=== PATIENT | female | born 1950 | race Two or more races ===

== ENCOUNTER 2021-04-13 14:32 | Inpatient (IN) | payer OTHER ==
[~2021-04-13] VITALS: Ht 165.1 cm; Wt 53.1 kg
[2021-04-13] MEDS ORDERED: SODIUM CHLORIDE 0.9% 1,000 ML IV ONE (15:15)
[2021-04-13] MEDS ORDERED: InsuLIN REG 1unit/0.01ml Soln (100units/ml) IV ONE (15:15)
[2021-04-13 16:32] LABS: Basophils # (auto) 0.1 10 ^3/uL (0-0.2); Basophils % (auto) 0.7 % (0.0-2.0); Eosinophils # (auto) 0 10 ^3/uL (0-0.8); Eosinophils % (auto) 0.1 % (0.0-7.0); Hematocrit 42.2 % (36.0-46.0); Hemoglobin 14.5 g/dL (12.2-16.2); Lymphocytes # (auto) 1.2 10 ^3/uL (0.4-5.4); Lymphocytes % (auto) 9.8 % (10.0-50.0); Mean Corpuscular Hemoglobin 31.1 pg (28.0-32.0); Mean Corpuscular Hgb Conc. 34.4 g/dL (32.0-36.0); Mean Corpuscular Volume 90.6 fL (80.0-100.0); Monocytes # (auto) 0.5 10 ^3/uL (0-1.3); Monocytes % (auto) 4.5 % (0.0-12.0); Neutrophils # (auto) 10.4 10 ^3/uL (1.6-8.6); Neutrophils % (auto) 84.9 % (37.0-80.0); Red Blood Cells 4.66 10^6/uL (4.0-5.20); Red Cell Distribution Width 12.9 % (11.8-14.3); White Blood Cell 12.2 10^3/uL (4.4-10.8)
[2021-04-13 16:46] LABS: Albumin 3.6 g/dL (3.4-5.0); Calcium 8.6 mg/dL (8.5-10.1); Magnesium 2.2 mg/dL (1.6-2.6); Potassium 3.2 mmol/L (3.5-5.1)
[2021-04-13 16:48] LABS: BUN/Creatinine Ratio 12.7
[2021-04-13 16:50] LABS: Bilirubin, Total 0.7 mg/dL (0.2-1.0); Total Protein 7.4 g/dL (6.4-8.2)
[2021-04-13] MEDS ORDERED: DOCUSATE CALCIUM 240 MG CAP PO PRN (19:00)
[2021-04-13] MEDS ORDERED: NITROGLYCERIN 0.4 MG SL TAB SL PRN (19:00)
[2021-04-13] MEDS ORDERED: ONDANSETRON HCL 4 MG/2 ML VIAL IV PRN (19:00)
[2021-04-13] MEDS ORDERED: MORPHINE SULF INJ 2 MG/ML SYRINGE 1ML IV PRN ×2 (19:00)
[2021-04-13] MEDS ORDERED: ACETAMINOPHEN 325 MG TAB PO PRN (19:00)
[2021-04-13] MEDS ORDERED: LORazepam 0.5 MG TAB PO PRN (19:00)
[2021-04-13] MEDS ORDERED: DEXTROSE (50%) 50ML SYRG IV PRN (19:00)
[2021-04-13] MEDS ORDERED: SODIUM CHLORIDE 0.9% 500 ML IV ONE (19:00)
[2021-04-13] MEDS: ACCU-CHEK COMFORT CURVE STRIP VI SCH ×2 (21:04→23:25)
[2021-04-13] MEDS ORDERED: INSULIN LANTUS (GLARGINE) 1 /0.01ml (100units/ml) SC ONE (21:28)
[2021-04-13] MEDS ORDERED: InsuLIN REG 1unit/0.01ml Soln (100units/ml) ONE (21:29)
[2021-04-13] MEDS: InsuLIN REG 1unit/0.01ml Soln (100units/ml) SC SCH ×2 (21:31→23:29)
[2021-04-13 21:37] VITALS: BP 131/84
[2021-04-13 22:00] VITALS: BP 131/84
[2021-04-13] MEDS ORDERED: INSULIN LANTUS (GLARGINE) 1 /0.01ml (100units/ml) SC SCH (22:00)
[2021-04-13 22:11] LABS: Urine Bacteria NONE SEEN /hpf (None Seen); Urine Blood Negative /uL (Negative); Urine Specific Gravity 1.013 (1.001-1.035); Urine WBC 2 /hpf (0 - 5)
[2021-04-13] MEDS ORDERED: POTASSIUM CHL 20 Meq TABLET PO ONE (22:30)
[2021-04-13] MEDS: SODIUM CHLORIDE 0.9% 1,000 ML IV SCH (22:30)
[2021-04-14] MEDS: InsuLIN REG 1unit/0.01ml Soln (100units/ml) SC SCH ×6 (03:29→23:25)
[2021-04-14] MEDS: ACCU-CHEK COMFORT CURVE STRIP VI SCH ×6 (03:29→23:22)
[2021-04-14 05:00] VITALS: BP 112/69
[2021-04-14 08:07] LABS: Basophils # (auto) 0 10 ^3/uL (0-0.2); Basophils % (auto) 0.5 % (0.0-2.0); Eosinophils # (auto) 0.1 10 ^3/uL (0-0.8); Eosinophils % (auto) 0.8 % (0.0-7.0); Hematocrit 41.5 % (36.0-46.0); Hemoglobin 14.3 g/dL (12.2-16.2); Lymphocytes # (auto) 2.4 10 ^3/uL (0.4-5.4); Mean Corpuscular Hemoglobin 31.7 pg (28.0-32.0); Mean Corpuscular Hgb Conc. 34.5 g/dL (32.0-36.0); Mean Corpuscular Volume 91.6 fL (80.0-100.0); Monocytes # (auto) 0.6 10 ^3/uL (0-1.3); Monocytes % (auto) 6.3 % (0.0-12.0); Neutrophils # (auto) 5.7 10 ^3/uL (1.6-8.6); Neutrophils % (auto) 65.4 % (37.0-80.0); Red Blood Cells 4.52 10^6/uL (4.0-5.20); Red Cell Distribution Width 13.2 % (11.8-14.3); White Blood Cell 8.7 10^3/uL (4.4-10.8)
[2021-04-14 08:12] LABS: INR 1.02 (0.9-1.15)
[2021-04-14 08:14] LABS: Potassium 3.2 mmol/L (3.5-5.1)
[2021-04-14 08:21] LABS: Albumin 3.3 g/dL (3.4-5.0); BUN/Creatinine Ratio 15.6; Bilirubin, Total 0.6 mg/dL (0.2-1.0); Calcium 8.4 mg/dL (8.5-10.1); Total Protein 7.2 g/dL (6.4-8.2)
[2021-04-14 09:00] VITALS: BP 147/70
[2021-04-14] MEDS: PANTOPRAZOLE 40 MG TAB PO SCH (09:01)
[2021-04-14] MEDS: ENOXAPARIN SOD 40 MG/0.4 ML SYRINGE SC SCH (09:01)
[2021-04-14] MEDS: SODIUM CHLORIDE 0.9% 1,000 ML IV SCH ×2 (11:40→23:26)
[2021-04-14 13:00] VITALS: BP 147/79
[2021-04-14 17:00] VITALS: BP 163/82
[2021-04-14] MEDS: LABETALOL HCL 5 MG/ML 4ML SYRINGE IV PRN (17:14)
[2021-04-14] MEDS: metFORMIN HYDROCHLORIDE 500 MG TAB PO SCH (17:14)
[2021-04-14 22:00] VITALS: BP 116/69
[2021-04-15] MEDS: ACCU-CHEK COMFORT CURVE STRIP VI SCH ×5 (04:01→20:40)
[2021-04-15] MEDS: InsuLIN REG 1unit/0.01ml Soln (100units/ml) SC SCH ×5 (04:04→20:45)
[2021-04-15 05:00] VITALS: BP 148/84
[2021-04-15 05:49] LABS: Basophils # (auto) 0.1 10 ^3/uL (0-0.2); Basophils % (auto) 0.8 % (0.0-2.0); Eosinophils # (auto) 0.1 10 ^3/uL (0-0.8); Eosinophils % (auto) 1.7 % (0.0-7.0); Hematocrit 42.7 % (36.0-46.0); Hemoglobin 14.8 g/dL (12.2-16.2); Lymphocytes # (auto) 2.1 10 ^3/uL (0.4-5.4); Lymphocytes % (auto) 27.6 % (10.0-50.0); Mean Corpuscular Hemoglobin 31.6 pg (28.0-32.0); Mean Corpuscular Hgb Conc. 34.7 g/dL (32.0-36.0); Mean Corpuscular Volume 91.1 fL (80.0-100.0); Monocytes # (auto) 0.4 10 ^3/uL (0-1.3); Monocytes % (auto) 5.6 % (0.0-12.0); Neutrophils # (auto) 4.8 10 ^3/uL (1.6-8.6); Neutrophils % (auto) 64.3 % (37.0-80.0); Nucleated Red Blood Cells % 0.1 %; Red Blood Cells 4.69 10^6/uL (4.0-5.20); Red Cell Distribution Width 13.3 % (11.8-14.3); White Blood Cell 7.5 10^3/uL (4.4-10.8)
[2021-04-15 05:55] LABS: BUN/Creatinine Ratio 13.3; Calcium 8.7 mg/dL (8.5-10.1); Potassium 3.7 mmol/L (3.5-5.1)
[2021-04-15] MEDS: metFORMIN HYDROCHLORIDE 500 MG TAB PO SCH (08:37)
[2021-04-15] MEDS: PANTOPRAZOLE 40 MG TAB PO SCH (08:38)
[2021-04-15] MEDS: ENOXAPARIN SOD 40 MG/0.4 ML SYRINGE SC SCH (08:38)
[2021-04-15 09:00] VITALS: BP 137/81
[2021-04-15 13:00] VITALS: BP 118/76
[2021-04-15] MEDS ORDERED: cloNIDine HCL 0.1 MG TAB PO PRN (14:15)
[2021-04-15 17:00] VITALS: BP 103/73
[2021-04-15] MEDS: metFORMIN HYDROCHLORIDE 850 MG TAB PO SCH (17:32)
[2021-04-15] MEDS: SODIUM CHLORIDE 0.9% 1,000 ML IV SCH (21:00)
[2021-04-15 22:00] VITALS: BP 130/74
[2021-04-15] MEDS ORDERED: LORazepam 2MG/ML-1ML VIAL IV PRN (23:00)
[2021-04-16] MEDS: ACCU-CHEK COMFORT CURVE STRIP VI SCH ×5 (00:04→21:46)
[2021-04-16] MEDS: InsuLIN REG 1unit/0.01ml Soln (100units/ml) SC SCH ×5 (03:50→21:53)
[2021-04-16 05:00] VITALS: BP 153/88
[2021-04-16] MEDS: LABETALOL HCL 5 MG/ML 4ML SYRINGE IV PRN (05:39)
[2021-04-16 05:53] LABS: Basophils # (auto) 0.1 10 ^3/uL (0-0.2); Eosinophils # (auto) 0.2 10 ^3/uL (0-0.8); Eosinophils % (auto) 2.7 % (0.0-7.0); Hemoglobin 14.1 g/dL (12.2-16.2); Lymphocytes # (auto) 2.8 10 ^3/uL (0.4-5.4); Lymphocytes % (auto) 40.1 % (10.0-50.0); Mean Corpuscular Hemoglobin 31.2 pg (28.0-32.0); Mean Corpuscular Hgb Conc. 34.3 g/dL (32.0-36.0); Monocytes # (auto) 0.5 10 ^3/uL (0-1.3); Monocytes % (auto) 6.6 % (0.0-12.0); Neutrophils # (auto) 3.5 10 ^3/uL (1.6-8.6); Neutrophils % (auto) 49.6 % (37.0-80.0); Nucleated Red Blood Cells % 0.1 %; Red Cell Distribution Width 13.3 % (11.8-14.3); White Blood Cell 7.1 10^3/uL (4.4-10.8)
[2021-04-16 06:20] LABS: Potassium 3.6 mmol/L (3.5-5.1)
[2021-04-16 06:26] LABS: Albumin 2.7 g/dL (3.4-5.0); BUN/Creatinine Ratio 10.9; Calcium 8.3 mg/dL (8.5-10.1)
[2021-04-16 06:29] LABS: Bilirubin, Total 0.4 mg/dL (0.2-1.0); Total Protein 6.2 g/dL (6.4-8.2)
[2021-04-16] MEDS: metFORMIN HYDROCHLORIDE 850 MG TAB PO SCH ×2 (08:45→19:41)
[2021-04-16 09:00] VITALS: BP 146/75
[2021-04-16] MEDS: ENOXAPARIN SOD 40 MG/0.4 ML SYRINGE SC SCH (11:00)
[2021-04-16] MEDS: PANTOPRAZOLE 40 MG TAB PO SCH (11:00)
[2021-04-16] MEDS ORDERED: DEXTROSE (50%) 50ML SYRG IV PRN (12:30)
[2021-04-16] MEDS ORDERED: MORPHINE SULF INJ 2 MG/ML SYRINGE 1ML IV PRN (12:30)
[2021-04-16] MEDS ORDERED: ATORVASTATIN 20 MG TAB PO ONE (12:30)
[2021-04-16] MEDS ORDERED: ASPirin 81 mg TAB PO ONE (12:30)
[2021-04-16] MEDS ORDERED: LABETALOL HCL 5 MG/ML 4ML SYRINGE IV PRN (12:30)
[2021-04-16 13:00] VITALS: BP 146/66
[2021-04-16 13:07] LABS: Cholesterol 191 mg/dL (< 200); Triglycerides 234 mg/dL (< 150)
[2021-04-16 13:09] LABS: HDL Cholesterol 40 mg/dL (40-59); LDL Cholesterol 107 mg/dL (< 100)
[2021-04-16 13:23] LABS: Folate (Folic Acid) 12.84 ng/mL (5.38-24)
[2021-04-16] MEDS: SODIUM CHLORIDE 0.9% 1,000 ML IV SCH (19:40)
[2021-04-16 22:00] VITALS: BP 140/63
[2021-04-17] MEDS: SODIUM CHLORIDE 0.9% 1,000 ML IV SCH (02:36)
[2021-04-17 05:00] VITALS: BP 135/71
[2021-04-17] MEDS: ACCU-CHEK COMFORT CURVE STRIP VI SCH ×4 (06:26→22:07)
[2021-04-17] MEDS: InsuLIN REG 1unit/0.01ml Soln (100units/ml) SC SCH ×4 (06:30→22:12)
[2021-04-17] MEDS: metFORMIN HYDROCHLORIDE 850 MG TAB PO SCH ×2 (08:00→18:00)
[2021-04-17 09:25] VITALS: BP 147/74
[2021-04-17] MEDS: ASPirin 81 mg TAB PO SCH (09:39)
[2021-04-17] MEDS: PANTOPRAZOLE 40 MG TAB PO SCH (09:39)
[2021-04-17] MEDS: ENOXAPARIN SOD 40 MG/0.4 ML SYRINGE SC SCH (09:39)
[2021-04-17] MEDS ORDERED: LISINOPRIL 10 MG TAB PO ONE (12:30)
[2021-04-17 13:00] VITALS: BP 151/83
[2021-04-17 16:44] VITALS: BP 157/78
[2021-04-17] MEDS ORDERED: ATORVASTATIN 20 MG TAB PO SCH (22:00)
[2021-04-17 22:55] VITALS: BP 142/70
[2021-04-18 02:08] LABS: INR 0.95 (0.9-1.15)
[2021-04-18 05:35] VITALS: BP 129/71
[2021-04-18] MEDS: ACCU-CHEK COMFORT CURVE STRIP VI SCH ×2 (06:21→12:30)
[2021-04-18] MEDS: InsuLIN REG 1unit/0.01ml Soln (100units/ml) SC SCH ×2 (06:21→11:30)
[2021-04-18] MEDS: metFORMIN HYDROCHLORIDE 850 MG TAB PO SCH (08:00)
[2021-04-18 08:35] VITALS: BP 146/84
[2021-04-18] MEDS ORDERED: LISINOPRIL 10 MG TAB PO SCH (10:00)
[2021-04-18] MEDS ORDERED: LIDOCAINE VISCOUS 2% 15ML UD MT ONE (10:00)
[2021-04-18] MEDS ORDERED: diphenhdrAMINE HCL 50 MG/1 ML VL IV ONE (10:00)
[2021-04-18] MEDS ORDERED: fentaNYL CITRATE 100 MCG/2 ML VL IV ONE (10:00)
[2021-04-18] MEDS ORDERED: MIDAZOLAM HCL 2MG/2ML 2ml VIAL (1mg/ml) IV ONE (10:00)
[2021-04-18] MEDS ORDERED: diphenhdrAMINE HCL 50 MG/1 ML VL ONE (10:28)
[2021-04-18] MEDS: ENOXAPARIN SOD 40 MG/0.4 ML SYRINGE SC SCH (12:52)
[2021-04-18] MEDS: ASPirin 81 mg TAB PO SCH (12:52)
[2021-04-18] MEDS: PANTOPRAZOLE 40 MG TAB PO SCH (12:52)
[2021-04-18 14:33] VITALS: BP 133/92
== END 2021-04-18 16:30 | disposition home or self-care (01) | DRG 64 ==
LOC: EDBD 14:32 → ER 14:32 → TELE-WESTW 19:12 → ER 20:02 → WEST WING 04-15 17:18 → TELE-WESTW 04-17 12:28
PROVIDERS: ADMIT Family Medicine; ATTEND Internal Medicine
PROC: B24BZZ4 Ultrasonography of Heart with Aorta, Transesophageal (ICD-10-PCS; principal; 2021-04-18)
DX: I63.89 Other cerebral infarction (principal); N17.0 Acute kidney failure with tubular necrosis; G40.209 Localization-related (focal) (partial) symptomatic epilepsy and epileptic syndromes with complex partial seizures, not intractable, without status epilepticus; E11.21 Type 2 diabetes mellitus with diabetic nephropathy; Z20.822 Contact with and (suspected) exposure to COVID-19; E86.0 Dehydration; T67.5XXA Heat exhaustion, unspecified, initial encounter; X30.XXXA Exposure to excessive natural heat, initial encounter; E87.6 Hypokalemia; N18.9 Chronic kidney disease, unspecified; E11.65 Type 2 diabetes mellitus with hyperglycemia; I48.91 Unspecified atrial fibrillation; E78.5 Hyperlipidemia, unspecified; I12.9 Hypertensive chronic kidney disease with stage 1 through stage 4 chronic kidney disease, or unspecified chronic kidney disease; E11.22 Type 2 diabetes mellitus with diabetic chronic kidney disease; Z79.4 Long term (current) use of insulin; Z79.82 Long term (current) use of aspirin; Z79.899 Other long term (current) drug therapy; Z82.49 Family history of ischemic heart disease and other diseases of the circulatory system; Y93.89 Activity, other specified; Y92.89 Other specified places as the place of occurrence of the external cause; Y99.8 Other external cause status
CPT/HCPCS: 36415; 70450; 70551; 71045; 80048; 80051; 80053; 80061; 81001; 82010; 82607; 82746; 82962; 83036; 83735; 83880; 84443; 84702; 85025; 85610; 86850; 86900; 86901; 87426; 93005; 93306; 93312; 93886; 96361; 96372; 96374; 97110; 97116; 97163; 97530; 99152; G0378; J1815; J2250; J3490

== ENCOUNTER 2021-04-24 08:37 | Inpatient (IN) | payer OTHER ==
[~2021-04-24] VITALS: Ht 162.6 cm; Wt 51.1 kg
[2021-04-24] MEDS ORDERED: SODIUM CHLORIDE 0.9% 1,000 ML IVB ONE (09:00)
[2021-04-24] MEDS ORDERED: SODIUM CHLORIDE 0.9% 1,000 ML IV ONE (09:00)
[2021-04-24 10:30] LABS: Basophils # (auto) 0 10 ^3/uL (0-0.2); Basophils % (auto) 0.3 % (0.0-2.0); Eosinophils # (auto) 0 10 ^3/uL (0-0.8); Eosinophils % (auto) 0.3 % (0.0-7.0); Hematocrit 44.9 % (36.0-46.0); Hemoglobin 15.7 g/dL (12.2-16.2); Lymphocytes # (auto) 0.7 10 ^3/uL (0.4-5.4); Lymphocytes % (auto) 5.3 % (10.0-50.0); Mean Corpuscular Hemoglobin 31.8 pg (28.0-32.0); Mean Corpuscular Hgb Conc. 34.9 g/dL (32.0-36.0); Mean Corpuscular Volume 91.1 fL (80.0-100.0); Monocytes # (auto) 0.5 10 ^3/uL (0-1.3); Monocytes % (auto) 3.5 % (0.0-12.0); Neutrophils # (auto) 11.8 10 ^3/uL (1.6-8.6); Neutrophils % (auto) 90.6 % (37.0-80.0); Red Blood Cells 4.93 10^6/uL (4.0-5.20); Red Cell Distribution Width 13.2 % (11.8-14.3)
[2021-04-24 10:41] LABS: INR 1.01 (0.9-1.15); Partial Thromboplastin Time 25.1 sec (23.6-33.0)
[2021-04-24 10:45] LABS: Carbon Dioxide 21 mmol/L (21-32); Chloride 103 mmol/L (98-107); Potassium 4.2 mmol/L (3.5-5.1); Sodium 137 mmol/L (136-145)
[2021-04-24 10:46] LABS: Albumin 3.5 g/dL (3.4-5.0); Anion Gap 13 (5-15); Blood Alcohol < 3.0 mg/dL (0-5); Blood Urea Nitrogen 38 mg/dL (7-18); Calcium 9.6 mg/dL (8.5-10.1); Glucose 269 mg/dL (74-106)
[2021-04-24 10:51] LABS: Alanine Aminotransferase 40 U/L (13-56); Alkaline Phosphatase 165 U/L (45-117); Aspartate Aminotransferase 17 U/L (15-37); BUN/Creatinine Ratio 30.9; GFR African American 56 mL/min; GFR Non-African American 46 mL/min; Total Protein 8.4 g/dL (6.4-8.2)
[2021-04-24] MEDS ORDERED: ACETAMINOPHEN 500 MG TAB PO PRN (12:30)
[2021-04-24] MEDS ORDERED: MORPHINE SULFATE INJECTION 2 MG/2 ML SYRG IV PRN ×2 (12:30)
[2021-04-24] MEDS ORDERED: NITROGLYCERIN 0.4 MG SL TAB SL PRN (12:30)
[2021-04-24] MEDS ORDERED: DEXTROSE (50%) 50ML SYRG IV PRN (12:30)
[2021-04-24] MEDS ORDERED: ONDANSETRON HCL 4 MG/2 ML VIAL IV PRN (12:30)
[2021-04-24] MEDS ORDERED: HYDROcodone-ACET 5/325MG TAB PO PRN (12:30)
[2021-04-24] MEDS: cefTRIAXone 1GM/50ML D5W 50 ML IV SCH (13:15)
[2021-04-24 14:38] LABS: Urine Bacteria NONE SEEN /hpf (None Seen); Urine Blood 1+ /uL (Negative); Urine Mucus FEW (None Seen); Urine Specific Gravity 1.023 (1.001-1.035); Urine WBC 2 /hpf (0 - 5)
[2021-04-24 14:45] LABS: Amphetamine Screen, Urine NEGATIVE (NEGATIVE); Barbiturate Scree,Urine NEGATIVE (NEGATIVE); Benzodiazephine Screen, Urine NEGATIVE (NEGATIVE); Cannabinoid Screen, Urine NEGATIVE (NEGATIVE); Cocaine Screen, Urine NEGATIVE (NEGATIVE); Opiate Scree,Urine NEGATIVE (NEGATIVE); Phencyclidine Screen, Urine NEGATIVE (NEGATIVE)
[2021-04-24] MEDS: InsuLIN REG 1unit/0.01ml Soln (100units/ml) SC SCH ×2 (17:24→22:27)
[2021-04-24] MEDS: ACCU-CHEK COMFORT CURVE STRIP VI SCH ×2 (17:31→22:16)
[2021-04-24] MEDS ORDERED: LORazepam 2MG/ML-1ML VIAL IV ONE (18:45)
[2021-04-25] MEDS: ACCU-CHEK COMFORT CURVE STRIP VI SCH ×4 (07:09→22:00)
[2021-04-25] MEDS: InsuLIN REG 1unit/0.01ml Soln (100units/ml) SC SCH ×4 (07:10→22:00)
[2021-04-25] MEDS ORDERED: cefTRIAXone 1GM/50ML D5W 50 ML IV SCH (09:00)
[2021-04-25] MEDS: cefTRIAXone 1GM/50ML D5W 50 ML IV SCH (09:33)
[2021-04-25] MEDS: NYSTATIN TOPICAL POWDER 15GM TOP SCH (09:34)
[2021-04-25] MEDS: ASPirin 81 mg TAB PO SCH (09:34)
[2021-04-25] MEDS: GENTAMICIN OPTH sol 0.3% 5ml EACHEYE SCH ×3 (09:34→17:24)
[2021-04-25 10:19] LABS: Basophils # (auto) 0.1 10 ^3/uL (0-0.2); Basophils % (auto) 0.9 % (0.0-2.0); Eosinophils # (auto) 0.3 10 ^3/uL (0-0.8); Hematocrit 42.5 % (36.0-46.0); Hemoglobin 14.6 g/dL (12.2-16.2); Lymphocytes # (auto) 1.6 10 ^3/uL (0.4-5.4); Lymphocytes % (auto) 17.2 % (10.0-50.0); Mean Corpuscular Hemoglobin 31.5 pg (28.0-32.0); Mean Corpuscular Hgb Conc. 34.4 g/dL (32.0-36.0); Mean Corpuscular Volume 91.4 fL (80.0-100.0); Monocytes # (auto) 0.4 10 ^3/uL (0-1.3); Monocytes % (auto) 4.7 % (0.0-12.0); Neutrophils # (auto) 6.7 10 ^3/uL (1.6-8.6); Neutrophils % (auto) 74.2 % (37.0-80.0); Red Blood Cells 4.65 10^6/uL (4.0-5.20)
[2021-04-25 10:40] LABS: Albumin 2.9 g/dL (3.4-5.0); Calcium 9.6 mg/dL (8.5-10.1); Potassium 4.4 mmol/L (3.5-5.1)
[2021-04-25 10:44] LABS: Bilirubin, Total 0.5 mg/dL (0.2-1.0); Total Protein 7.4 g/dL (6.4-8.2)
[2021-04-26] MEDS: NYSTATIN TOPICAL POWDER 15GM TOP SCH ×3 (00:10→23:00)
[2021-04-26] MEDS: GENTAMICIN OPTH sol 0.3% 5ml EACHEYE SCH ×7 (00:10→23:00)
[2021-04-26] MEDS: ACCU-CHEK COMFORT CURVE STRIP VI SCH ×4 (06:04→23:00)
[2021-04-26] MEDS: InsuLIN REG 1unit/0.01ml Soln (100units/ml) SC SCH ×4 (06:46→23:01)
[2021-04-26 09:00] VITALS: BP 127/60
[2021-04-26] MEDS: ASPirin 81 mg TAB PO SCH (10:17)
[2021-04-26 13:00] VITALS: BP 134/62
[2021-04-26 22:00] VITALS: BP 125/72
[2021-04-27] MEDS: GENTAMICIN OPTH sol 0.3% 5ml EACHEYE SCH ×6 (02:00→21:37)
[2021-04-27 05:00] VITALS: BP 123/68
[2021-04-27] MEDS: ACCU-CHEK COMFORT CURVE STRIP VI SCH ×4 (06:00→21:38)
[2021-04-27] MEDS: InsuLIN REG 1unit/0.01ml Soln (100units/ml) SC SCH ×4 (06:01→21:38)
[2021-04-27 09:00] VITALS: BP 129/60
[2021-04-27] MEDS: NYSTATIN TOPICAL POWDER 15GM TOP SCH ×2 (10:00→21:37)
[2021-04-27] MEDS: ASPirin 81 mg TAB PO SCH (10:00)
[2021-04-27 13:00] VITALS: BP 154/77
[2021-04-27 17:00] VITALS: BP 156/73
[2021-04-27 22:00] VITALS: BP 110/62
[2021-04-28] MEDS: GENTAMICIN OPTH sol 0.3% 5ml EACHEYE SCH ×6 (02:00→21:29)
[2021-04-28 05:00] VITALS: BP 107/61
[2021-04-28] MEDS: ACCU-CHEK COMFORT CURVE STRIP VI SCH ×4 (06:22→21:33)
[2021-04-28] MEDS: InsuLIN REG 1unit/0.01ml Soln (100units/ml) SC SCH ×4 (06:23→21:32)
[2021-04-28 09:35] VITALS: BP 137/88
[2021-04-28] MEDS: ASPirin 81 mg TAB PO SCH (09:37)
[2021-04-28] MEDS: NYSTATIN TOPICAL POWDER 15GM TOP SCH ×2 (09:37→21:33)
[2021-04-28 13:00] VITALS: BP 149/73
[2021-04-28 16:47] VITALS: BP 128/74
[2021-04-28 22:00] VITALS: BP 114/62
[2021-04-29] MEDS: GENTAMICIN OPTH sol 0.3% 5ml EACHEYE SCH ×6 (02:00→21:42)
[2021-04-29 05:30] VITALS: BP 120/75
[2021-04-29] MEDS: ACCU-CHEK COMFORT CURVE STRIP VI SCH ×4 (06:36→21:43)
[2021-04-29] MEDS: InsuLIN REG 1unit/0.01ml Soln (100units/ml) SC SCH ×4 (06:38→21:49)
[2021-04-29 08:00] VITALS: BP 111/76
[2021-04-29 08:39] VITALS: BP 111/76
[2021-04-29] MEDS: ASPirin 81 mg TAB PO SCH (10:00)
[2021-04-29] MEDS: NYSTATIN TOPICAL POWDER 15GM TOP SCH ×2 (10:00→21:42)
[2021-04-29 13:00] VITALS: BP 127/97
[2021-04-29 17:30] VITALS: BP 145/74
[2021-04-29 21:56] VITALS: BP 158/79
[2021-04-30] MEDS: GENTAMICIN OPTH sol 0.3% 5ml EACHEYE SCH ×6 (01:21→22:08)
[2021-04-30 05:30] VITALS: BP 150/79
[2021-04-30] MEDS: ACCU-CHEK COMFORT CURVE STRIP VI SCH ×4 (06:25→22:07)
[2021-04-30] MEDS: InsuLIN REG 1unit/0.01ml Soln (100units/ml) SC SCH ×4 (06:27→22:07)
[2021-04-30 10:32] VITALS: BP 135/74
[2021-04-30] MEDS: ASPirin 81 mg TAB PO SCH (10:48)
[2021-04-30] MEDS: NYSTATIN TOPICAL POWDER 15GM TOP SCH ×2 (10:49→22:08)
[2021-04-30 13:00] VITALS: BP 104/68
[2021-04-30 17:00] VITALS: BP 121/70
[2021-04-30] MEDS ORDERED: HYDROcodone-ACET 5/325MG TAB PO PRN (18:19)
[2021-04-30 22:00] VITALS: BP 121/78
[2021-05-01] MEDS: GENTAMICIN OPTH sol 0.3% 5ml EACHEYE SCH ×6 (02:37→21:32)
[2021-05-01 06:00] VITALS: BP 130/68
[2021-05-01] MEDS: ACCU-CHEK COMFORT CURVE STRIP VI SCH ×4 (06:17→21:32)
[2021-05-01] MEDS: InsuLIN REG 1unit/0.01ml Soln (100units/ml) SC SCH ×4 (06:18→21:41)
[2021-05-01 09:00] VITALS: BP 109/58
[2021-05-01] MEDS: NYSTATIN TOPICAL POWDER 15GM TOP SCH ×2 (10:19→21:32)
[2021-05-01] MEDS: ASPirin 81 mg TAB PO SCH (10:19)
[2021-05-01 12:53] VITALS: BP 127/74
[2021-05-01 12:56] VITALS: BP 139/70
[2021-05-01 17:33] VITALS: BP 149/81
[2021-05-01 22:00] VITALS: BP 111/56
[2021-05-02] MEDS: GENTAMICIN OPTH sol 0.3% 5ml EACHEYE SCH ×6 (02:05→22:05)
[2021-05-02 05:00] VITALS: BP 102/59
[2021-05-02] MEDS: ACCU-CHEK COMFORT CURVE STRIP VI SCH ×4 (06:44→22:05)
[2021-05-02] MEDS: InsuLIN REG 1unit/0.01ml Soln (100units/ml) SC SCH ×4 (06:45→22:06)
[2021-05-02 09:00] VITALS: BP 131/73
[2021-05-02] MEDS: NYSTATIN TOPICAL POWDER 15GM TOP SCH ×2 (11:08→22:05)
[2021-05-02] MEDS: ASPirin 81 mg TAB PO SCH (11:08)
[2021-05-02 12:41] VITALS: BP 143/60
[2021-05-02 17:00] VITALS: BP 128/69
[2021-05-02 22:00] VITALS: BP 121/65
[2021-05-03] MEDS: GENTAMICIN OPTH sol 0.3% 5ml EACHEYE SCH ×4 (03:17→14:24)
[2021-05-03 05:00] VITALS: BP 105/56
[2021-05-03] MEDS: ACCU-CHEK COMFORT CURVE STRIP VI SCH ×2 (07:04→12:30)
[2021-05-03] MEDS: InsuLIN REG 1unit/0.01ml Soln (100units/ml) SC SCH ×2 (07:24→12:34)
[2021-05-03 09:00] VITALS: BP 93/52
[2021-05-03] MEDS: ASPirin 81 mg TAB PO SCH (10:05)
[2021-05-03] MEDS: NYSTATIN TOPICAL POWDER 15GM TOP SCH (10:05)
[2021-05-03 13:00] VITALS: BP 92/63
== END 2021-05-03 18:13 | DRG 871 ==
LOC: EDSEX 08:37 → ER 08:37 → EDBD 08:37 → TELE 12:30 → TELE-WESTW 04-26 07:48 → WEST WING 04-27 02:16
PROVIDERS: ADMIT Nurse Practitioner Acute Care; ATTEND Family Medicine
DX: A41.9 Sepsis, unspecified organism (principal); G93.41 Metabolic encephalopathy; R64 Cachexia; N39.0 Urinary tract infection, site not specified; Z68.1 Body mass index [BMI] 19.9 or less, adult; E78.5 Hyperlipidemia, unspecified; N18.32 Chronic kidney disease, stage 3b; E78.00 Pure hypercholesterolemia, unspecified; I12.9 Hypertensive chronic kidney disease with stage 1 through stage 4 chronic kidney disease, or unspecified chronic kidney disease; Z20.822 Contact with and (suspected) exposure to COVID-19; Z86.73 Personal history of transient ischemic attack (TIA), and cerebral infarction without residual deficits; Z82.49 Family history of ischemic heart disease and other diseases of the circulatory system; E11.22 Type 2 diabetes mellitus with diabetic chronic kidney disease; Z79.84 Long term (current) use of oral hypoglycemic drugs
CPT/HCPCS: 36415; 70450; 71045; 80053; 80307; 80320; 81001; 82010; 82962; 83605; 84484; 85025; 85610; 85730; 87040; 87081; 87426; 93005; 95819; 96360; 96361; 97116; 97163; 97530; G0378; J0696; J1815